=== PATIENT | female | born 1940 | race Caucasian/White ===

== ENCOUNTER 2017-03-28 22:29 | Emergency (ER) | payer MEDICARE, OTHER ==
[~2017-03-28 22:29] MED LIST: AMLODIPINE10 MG PO; ANT25 PO; ARI5 PO; CHEWABLE ASPIRI81 MG PO; CLOPIDOGREL75 MG PO; DET1 PO; DIOHCT PO; GLIMEPIRIDE2 MG PO; HYDROCHLOROTHIA PO; LORAZEPAM PO; METOPROLOL TART25 MG PO; OMEPRAZOLE20 MG PO; PAROXETINE HYDR20 MG PO; PRAVASTATIN SOD80 MG PO; TIROSINT100 MCG PO; ULT50 PO
[2017-03-28 22:49] VITALS: BP 187/88
== END 2017-03-29 00:44 | disposition home or self-care (01) ==
LOC: ED 22:29
DX: S66.911A Strain of unspecified muscle, fascia and tendon at wrist and hand level, right hand, initial encounter (principal); S60.811A Abrasion of right wrist, initial encounter; I10 Essential (primary) hypertension; E11.9 Type 2 diabetes mellitus without complications; F32.9 Major depressive disorder, single episode, unspecified; E07.9 Disorder of thyroid, unspecified; W18.30XA Fall on same level, unspecified, initial encounter; Y93.89 Activity, other specified; Y99.8 Other external cause status; Y92.89 Other specified places as the place of occurrence of the external cause

== ENCOUNTER 2017-09-10 08:40 | Inpatient (IN) | payer OTHER, MEDICARE ==
[~2017-09-10] VITALS: Ht 165.1 cm; Wt 98.9 kg
[2017-09-10 10:45] LABS: BASOPHIL % 0.5 % (0-2); PLATELET COUNT 207 x10^3mcL (130-400); RED CELL DISTRIBUTION WIDTH 13.6 % (11.5-14.5)
[2017-09-10 10:56] LABS: CARBON DIOXIDE 32.4 mmol/L (21-32); CHLORIDE SERUM 104 mmol/L (98-107); GLUCOSE SERUM 211 mg/dL (74-106); POTASSIUM SERUM 4.2 mmol/L (3.5-5.1); SODIUM SERUM 141 mmol/L (136-145)
[2017-09-10 11:01] LABS: ALBUMIN 3.5 g/dL (3.4-5.0); ALKALINE PHOSPHATASE 65 U/L (46-116); ALT/SGPT 28 U/L (14-59); AST/SGOT 25 U/L (15-37); BILIRUBIN TOTAL 0.4 mg/dL (0.20-1.00); LIPASE 213 IU/L (73-393); TOTAL PROTEIN, SERUM 7.6 g/dL (6.4-8.2)
[2017-09-10] MEDS ORDERED: ATORVASTATIN CA40 M1 PO (12:37)
[2017-09-10] MEDS ORDERED: PAROXETINE HCL20 M1 PO (12:37)
[2017-09-10] MEDS ORDERED: GOOD SENSE OMEP20 MG PO (12:38)
[2017-09-10] MEDS ORDERED: LEVOTHYROXINE0.1 M2 PO (12:38)
[2017-09-10] MEDS ORDERED: ASPIR 8181 MG PO (12:38)
[2017-09-10] MEDS ORDERED: AMLODIPINE BESYL5 M2 PO (12:39)
[2017-09-10] MEDS ORDERED: LOSARTAN POTAS100 M1 PO (12:40)
[2017-09-10 12:48] LABS: microscopic required? NO
[2017-09-10 13:01] LABS: CHOLESTEROL/HDL RATIO 3.1; MAGNESIUM 1.7 mg/dL (1.8-2.4); PHOSPHOROUS 2.6 mg/dL (2.5-4.9)
[2017-09-10 13:04] LABS: AMPHETAMINE QUAL UR NONE DETECTED (NEG <=1000); UA SPECIFIC GRAVITY <=1.005 (1.005-1.035); urine erythrocyte NEGATIVE (NEGATIVE)
[2017-09-10 13:13] LABS: T3 TOTAL 1.04 ng/mL
[2017-09-10 13:28] LABS: FREE T4 1.32 ng/dL (0.76-1.46); FREE THYROXINE INDEX 3.5 ug/dL (1.4-4.5)
[2017-09-10 14:17] VITALS: BP 144/82
[2017-09-10 14:19] VITALS: Ht 165.1 cm; Wt 98.9 kg
[2017-09-10 16:49] VITALS: BP 160/77
[2017-09-10 17:58] VITALS: BP 144/82
[2017-09-10 22:12] VITALS: BP 130/61
[2017-09-11 05:42] VITALS: BP 144/63
[2017-09-11 06:48] LABS: CARBON DIOXIDE 27.6 mmol/L (21-32); CHLORIDE SERUM 107 mmol/L (98-107); CREATININE SERUM 0.9 mg/dL (0.6-1.0); GLUCOSE SERUM 151 mg/dL (74-106); MAGNESIUM 1.6 mg/dL (1.8-2.4); POTASSIUM SERUM 4.6 mmol/L (3.5-5.1); SODIUM SERUM 142 mmol/L (136-145)
[2017-09-11 06:56] LABS: BASOPHIL % 0.3 % (0-2); PLATELET COUNT 204 x10^3mcL (130-400); RED CELL DISTRIBUTION WIDTH 13.2 % (11.5-14.5)
[2017-09-11 10:30] VITALS: BP 157/81
[2017-09-11] MEDS ORDERED: LEVOFLOXACIN500 M1 PO (11:18)
[2017-09-11] MEDS ORDERED: CLEOCIN HCL300 MG PO (11:19)
[2017-09-11] MEDS ORDERED: LAC PO (11:19)
[2017-09-11] MEDS ORDERED: XARELTO20 M1 PO (11:21)
[2017-09-11 12:55] VITALS: BP 134/69
[2017-09-11 15:13] VITALS: BP 134/69
== END 2017-09-11 16:45 | disposition home or self-care (01) | DRG 137 ==
LOC: ED 08:40 → DU 12:30
PROVIDERS: Emergency Medicine; Family Medicine
DX: J69.0 Pneumonitis due to inhalation of food and vomit (principal); D68.69 Other thrombophilia; E11.65 Type 2 diabetes mellitus with hyperglycemia; I48.2 Chronic atrial fibrillation; E83.42 Hypomagnesemia; E86.0 Dehydration; I10 Essential (primary) hypertension; E03.9 Hypothyroidism, unspecified; E78.5 Hyperlipidemia, unspecified; I16.0 Hypertensive urgency; M94.0 Chondrocostal junction syndrome [Tietze]; K21.9 Gastro-esophageal reflux disease without esophagitis; Z68.38 Body mass index [BMI] 38.0-38.9, adult; Z79.84 Long term (current) use of oral hypoglycemic drugs; Z79.82 Long term (current) use of aspirin; Z86.73 Personal history of transient ischemic attack (TIA), and cerebral infarction without residual deficits
CPT/HCPCS: 82962; 83880; 84439; 87804; J1644; J1885; J1956; J2405; J3490; J7030; J7620; J7633; Q0092

== ENCOUNTER 2018-10-05 13:22 | Emergency (ER) | payer MEDICARE, OTHER ==
[~2018-10-05] VITALS: Ht 165.1 cm; Wt 99.8 kg
[~2018-10-05 13:22] MED LIST changes: +AMLODIPINE BESYL5 M2 PO; +ASPIR 8181 MG PO; +ATORVASTATIN CA40 M1 PO; +CLEOCIN HCL300 MG PO; +GOOD SENSE OMEP20 MG PO; +LAC PO; +LEVOFLOXACIN500 M1 PO; +LEVOTHYROXINE0.1 M2 PO; +LOSARTAN POTAS100 M1 PO; +PAROXETINE HCL20 M1 PO; +XARELTO20 M1 PO
[2018-10-05 13:46] VITALS: Ht 165.1 cm; Wt 99.8 kg
[2018-10-05 15:31] LABS: BASOPHIL % 0.3 % (0-2); PLATELET COUNT 273 x10^3mcL (130-400); RED CELL DISTRIBUTION WIDTH 12.7 % (11.5-14.5)
[2018-10-05 15:38] LABS: CALCIUM 9.4 mg/dL (8.5-10.1); CARBON DIOXIDE 31.4 mmol/L (21-32); CHLORIDE SERUM 105 mmol/L (98-107); CREATININE SERUM 0.9 mg/dL (0.6-1.0); GLUCOSE SERUM 149 mg/dL (74-106); POTASSIUM SERUM 4.1 mmol/L (3.5-5.1); SODIUM SERUM 143 mmol/L (136-145)
[2018-10-05 15:43] LABS: ALKALINE PHOSPHATASE 61 U/L (46-116); ALT/SGPT 23 U/L (14-59); AST/SGOT 19 U/L (15-37); BILIRUBIN TOTAL 0.35 mg/dL (0.20-1.00); TOTAL PROTEIN, SERUM 8.2 g/dL (6.4-8.2)
[2018-10-05 17:45] LABS: microscopic required? NO
[2018-10-05 17:52] LABS: urine erythrocyte NEGATIVE (NEGATIVE)
[2018-10-05 20:26] VITALS: BP 140/79
== END 2018-10-05 20:27 | disposition home or self-care (01) ==
LOC: ED 13:22
PROVIDERS: Emergency Medicine
DX: M50.321 Other cervical disc degeneration at C4-C5 level (principal); M50.322 Other cervical disc degeneration at C5-C6 level; M50.323 Other cervical disc degeneration at C6-C7 level; M47.9 Spondylosis, unspecified; E11.9 Type 2 diabetes mellitus without complications; I10 Essential (primary) hypertension; E03.9 Hypothyroidism, unspecified; Z86.73 Personal history of transient ischemic attack (TIA), and cerebral infarction without residual deficits
CPT/HCPCS: 83880; 87804; J1100; J1885

== ENCOUNTER 2019-06-04 13:26 | Inpatient (IN) | payer MEDICARE, OTHER ==
[~2019-06-04] VITALS: Ht 165.1 cm; Wt 87.5 kg
[2019-06-04 13:44] VITALS: Ht 165.1 cm; Wt 87.5 kg
--- NOTE | 2019-06-04 13:48 | NUR ---
EKG IN PROGRESS.
--- NOTE | 2019-06-04 14:18 | NUR ---
PT. IN ED WITH C/O NON PRODUCTIVE COUGH FOR 8DAYS. ALSO REPORTS CHEST PAIN TO LEFT SIDE OF CHEST X2DAYS. PT. AAOX4, TALKING AND RESPONDING APPROPRIATELY, BREATHING E/U. NAD. DENIES FEVERS AT HOME. PLACED ON [employer]. CALL LIGHT IN REACH. WILL CONTINUE TO MONITOR. FAMILY AT BEDSIDE.
[2019-06-04 14:30] LABS: BASOPHIL % 0.4 % (0-2); PLATELET COUNT 305 x10^3mcL (130-400); RED CELL DISTRIBUTION WIDTH 13.9 % (11.5-14.5)
--- NOTE | 2019-06-04 15:00 | NUR ---
PT. LAYING ON GURNEY, DENIES CHEST PAIN AFTER BREATHING TREATMENT. WILL CONTINUE TO MONITOR.
[2019-06-04 15:29] LABS: CHLORIDE SERUM 105 mmol/L (98-107); POTASSIUM SERUM 4.3 mmol/L (3.5-5.1); SODIUM SERUM 142 mmol/L (136-145)
[2019-06-04 15:30] LABS: ALBUMIN 3.6 g/dL (3.4-5.0); ALKALINE PHOSPHATASE 69 U/L (46-116); ALT/SGPT 15 U/L (14-59); AST/SGOT 18 U/L (15-37); BILIRUBIN TOTAL 0.31 mg/dL (0.20-1.00); CALCIUM 8.8 mg/dL (8.5-10.1); CARBON DIOXIDE 30.5 mmol/L (21-32); GLUCOSE SERUM 91 mg/dL (74-106); TOTAL PROTEIN, SERUM 7.5 g/dL (6.4-8.2)
--- NOTE | 2019-06-04 16:01 | NUR ---
PT. LAYING ON GURNEY IN POSITION OF COMFORT, REPORTS SHE IS FEELING BETTER AFTER BREATHING TREATMENT. BREATHING E/U. NOT IN ANY APPARENT DISTRESS AT THIS TIME. CALL LIGHT IN REACH. FAMILY MEMBER AT BEDSIDE. WILL CONTINUE TO MONITOR.
--- NOTE | 2019-06-04 16:46 | NUR ---
PT. UP TO RESTROOM TO VOID. AMBULATES WITH USE OF MATOS.
--- NOTE | 2019-06-04 17:15 | NUR ---
REMOVEN OXYGEN FROM PATIENT AND OXYGEN SATURATION 88-90% ON RA. DR. REID MADE AWARE.
--- NOTE | 2019-06-04 17:43 | NUR ---
ABX ORDERED. AWAITING COLLECTION OF BLOOD CULTURES.
--- NOTE | 2019-06-04 18:30 | NUR ---
PT. NOTED TO HAVE HEMATOMA TO RIGHT HAD AFTER BLOOD DRAW. ICE PACK APPLIED. ROCEPHIN STARTED TO LAC PER E-MAR. PT. TOLERATING WELL NO ADVERSE REACTIONS NOTED. CALL LIGHT IN REACH. FAMILY AT BEDSIDE. WILL CONTINUE TO MONITOR
--- NOTE | 2019-06-04 19:05 | NUR ---
PER SAAD GRANT FOR PT. TO EAT. PT. GIVEN SANDWICH, JELLO, AND WATER.
--- NOTE | 2019-06-04 19:20 | NUR ---
REPORT GIVEN TO CHAPIS GOLDBERG FOR FURTHER CARE OF PATIENT. ALL QUESTIONS AND CONCERNS ADDRESSED.
[2019-06-04 19:22] LABS: MAGNESIUM 1.5 mg/dL (1.8-2.4); PHOSPHOROUS 3.7 mg/dL (2.5-4.9)
--- NOTE | 2019-06-04 19:34 | NUR ---
REPORT GIVEN TO JESSI GOLDBERG FOR FURTHER CARE OF PATIENT. ALL QUESTIONS AND CONCERS ADDRESSED.
[2019-06-04] MEDS ORDERED: TRAMADOL HCL50 MG (19:36)
[2019-06-04] MEDS ORDERED: METFORMIN HYDR500 M1 (19:36)
[2019-06-04] MEDS ORDERED: ALENDRONATE SOD70 M3 (19:36)
[2019-06-04] MEDS ORDERED: ELIQUIS2.5 MG (19:36)
--- NOTE | 2019-06-04 19:37 | NUR ---
PT. TRASFERED TO [facility] VIA WHEELCHAIR. PT. AAOX4, TALKING AND RESPONDING APPROPRIATELY, BREATHING E/U. NAD. STABLE AT TIME OF TRANSFER.
[2019-06-04 19:45] LABS: T3 TOTAL 0.69 ng/mL
[2019-06-04 20:19] LABS: FREE T4 1.39 ng/dL (0.76-1.46); FREE THYROXINE INDEX 3.3 ug/dL (1.4-4.5); T4(THYROXINE) 9.2 ug/dL (4.7-13.3)
[2019-06-04 20:32] VITALS: BP 166/83
--- NOTE | 2019-06-04 20:44 | NUR ---
RECEVED PT FROM ER, PT ADMIT FOR PNA, HYPOXIA, RESP FAILURE, PT IS A/O X4, VERBAL RESPONSIVE, LUNG SOUND CLEAR, PT C/O CONSTANTLY DRY COUGH X 8 DAYS, DENY ANY SOB AT THIS TIME PO2 93% IN 2L/MIN O2 VIA NC. PT C/O CHEST PAIN ONLY WHEN SHE COUGH, BOWEL SOUND PRESENT ALL 4 QUADRANTS, NO DISTENTION, NO TENDER. PEDAL PULSE PRESENT BOTH FEET, NO EDEMA, IV AT LEFT AC, NO LEAKING, NO INFILTRAITON. ALL ADLS ASSIST, ALL NEED MET, CALL LIGHT IN REACH, WILL CONTINUE TO MONITOR.
[2019-06-04 20:48] VITALS: BP 166/83
--- NOTE | 2019-06-05 02:42 | NUR ---
ASSISTED PT TO THE BATHROOM AND BACK TO BED. NO SOB NOTED. NO INCIDENT HAPPENED. WILL CONTINUE TO MONITOR.
[2019-06-05 04:52] VITALS: BP 165/67
--- NOTE | 2019-06-05 05:06 | NUR ---
PT ASLEEP EASILY AROUSABLE. NO ACUTE RESPIRATORY DISTRESS NOTED. NO INDICATION OF PAIN. BED IN LOWEST POSITION,CALL LIGHT WITHIN REACH. WILL CONTINUE TO MONITOR.
[2019-06-05 06:08] VITALS: BP 165/57
--- NOTE | 2019-06-05 06:12 | NUR ---
BP 165/57. GIVEN LOSARTAN 100MG PO EARLY ORDERED. WILL CONTINUE TO MONITOR.
[2019-06-05 06:53] LABS: BASOPHIL % 0.3 % (0-2); CHLORIDE SERUM 108 mmol/L (98-107); PLATELET COUNT 276 x10^3mcL (130-400); RED CELL DISTRIBUTION WIDTH 13.9 % (11.5-14.5)
[2019-06-05 07:05] LABS: CREATININE SERUM 0.8 mg/dL (0.6-1.0)
--- NOTE | 2019-06-05 07:10 | NUR ---
RECEIVED REPORT FROM RATNA GOLDBERG AT BEDSIDE, PT IN BED IN NO ACUTE DISTRESS
[2019-06-05 07:13] LABS: CALCIUM 9.4 mg/dL (8.5-10.1); CARBON DIOXIDE 29.7 mmol/L (21-32); GLUCOSE SERUM 119 mg/dL (74-106); MAGNESIUM 2.1 mg/dL (1.8-2.4); POTASSIUM SERUM 4.4 mmol/L (3.5-5.1); SODIUM SERUM 144 mmol/L (136-145)
--- NOTE | 2019-06-05 07:26 | NUR ---
PT RESTING IN BED, AXOX4, DENIED HALL/PAIN/PALPITATION, DENIED N/V/D, VERBAL, ABLE TO MAKE NEEDS KNOWN, HEBREW, PERRLA, CALM AND COOPERATIVE, NO FACIAL DROOP/SLURRED SPEECH, RESP EVEN, NO SOB/COUGH AT THIS TIME, 2L/MIN, NC, LUNGS CTA, CHEST RISE SYMMETRICALLY, MEDSURG, ABD ROUND AND NON-TENDER TO TOUCH, BS ACTIVE X 4, PALP PULSES, CAP REFILL < 3S, SKIN C/D/W, SEE SKIN ASSESSMENT, IV PATENT AND FLUSHING WELL, DRESSING CDI, SCDs, AMBULATORY, CONTINENT, ALL NEEDS ADDRESSED AT THIS TIME, SAFETY PROTOCOL FOLLOWED, CONTINUE TO MONITOR
--- NOTE | 2019-06-05 07:26 | NUR ---
CARE ENDORSED TO DAY NURSE THI.
[2019-06-05 07:57] VITALS: BP 138/76
--- NOTE | 2019-06-05 10:00 | NUR ---
AM MED GIVEN PER EMAR PER MD ORDER, TOLERATED WELL, NO ASE NOTED AT THIS TIME, EDUCATION R/T MED, S/E GIVEN TO PT, MEETA UNDERSTANDING, CONTINUE TO MONITOR
[2019-06-05] MEDS ORDERED: ZITHROMAX500 MG PO (11:16)
[2019-06-05] MEDS ORDERED: ALBUTEROL0.63 MG/3 NEB (11:18)
[2019-06-05] MEDS ORDERED: ALBUTEROL0.63 MG/3 INH (11:21)
--- NOTE | 2019-06-05 11:43 | NUR ---
IV REMOVED, IV CATH TIP INTACT, NO ACTIVE BLEEDING NOTED, PT ON 1L/MIN, NC, 95%, PT WEENED O2 TO RA, 90-91% AT THIS TIME, IN NO ACUTE DISTRESS, FAMILY AT BEDSIDE, ENCOURAGED TO USE IS, VERBALLY UNDERSTANDING, CONTINUE TO MONITOR
[2019-06-05 11:55] VITALS: BP 138/76
--- NOTE | 2019-06-05 13:25 | NUR ---
CANCELLATION REQUESTED FOR ECHOCARDIOGRAM
--- NOTE | 2019-06-05 13:43 | NUR ---
DC PAPER SIGNED AND KEPT IN CHART, EDUCATION R/T IS USE AND FREQUENCY, MEDICATION NEW PRESCRIPTION AND ASE GIVEN TO PT, SON AT BEDSIDE TRANSLATED FOR PT PER PT REQUESTED, QUESTIONS AKSED AND ANSWERED, NO FURTHER CONCERNS NEEDED WHEN ASKED, PT SAID IT'S HER RESPONSIBILITY TO F/U W/ PCP, PT AWARE NEW PRESCRIPTION IN DC PACKAGE AND P/U AT FAMILY PH[facility], PT ASSISTED TO LOBBY VIA WC BY NUSING STAFFS, SON DRIVE PT HOME, SON SAID WILL STOP BY PHARMACY TO P/U NEW MEDICATION FOR PT, PT LEFT IN NO ACUTE DISTRESS
== END 2019-06-05 13:47 | disposition home or self-care (01) | DRG 193 ==
LOC: ED 13:26 → MU 18:37
PROVIDERS: Student in an Organized Health Care Education/Training Program; ADMIT General Practice
DX: J18.9 Pneumonia, unspecified organism (principal); J96.01 Acute respiratory failure with hypoxia; I69.351 Hemiplegia and hemiparesis following cerebral infarction affecting right dominant side; E11.65 Type 2 diabetes mellitus with hyperglycemia; E83.42 Hypomagnesemia; E03.9 Hypothyroidism, unspecified; E78.5 Hyperlipidemia, unspecified; I10 Essential (primary) hypertension; I48.91 Unspecified atrial fibrillation; K21.9 Gastro-esophageal reflux disease without esophagitis; Z68.32 Body mass index [BMI] 32.0-32.9, adult; Z79.84 Long term (current) use of oral hypoglycemic drugs
CPT/HCPCS: 83880; 84439; G0378; J0456; J0696; J3475; J7030; J7050; J7060; J7613; J7620; J7644; Q0092